=== PATIENT | female | born 1965 ===

== ENCOUNTER → 2021-06-19 | Outpatient (CLI) | payer BC | LOC: EXRD 01-15 09:14 | DX: M25.542 Pain in joints of left hand (principal); M25.541 Pain in joints of right hand | CPT/HCPCS: 73140 ==

== ENCOUNTER → 2021-10-12 | Day surgery (SDC) | payer BC ==
[~2021-10-12] MED LIST: ATORVASTATIN CA20 MG PO; CENTRUM SILVER PO; HYDROXYZINE HCL50 MG PO; LEVOTHYROXINE75 MCG PO
== END | disposition home or self-care (01) ==
LOC: OR 06:13
DX: Z12.11 Encounter for screening for malignant neoplasm of colon (principal); D36.11 Benign neoplasm of peripheral nerves and autonomic nervous system of face, head, and neck; E78.5 Hyperlipidemia, unspecified; E03.9 Hypothyroidism, unspecified; E78.00 Pure hypercholesterolemia, unspecified; Z79.899 Other long term (current) drug therapy
CPT/HCPCS: J2704; J7120